=== PATIENT | male | born 1960 | race Caucasian/White ===

== ENCOUNTER 2016-11-26 12:32 | Emergency (ER) | payer OTHER ==
--- NOTE | 2016-11-26 12:49 | ED Physician Chart ---
Chief Complaint/HPI - Patient Information Date Seen:: 11/26/16 Time Seen:: 12:47 Chief Complaint:: INFECTED ULCERATION DORSAL RT FOOT Allergies:: Allergies Allergy/AdvReac Type Severity Reaction Status Date / Time No Known Allergies Allergy Verified 11/26/16 12:40 The patient first noticed the ulceration on his right foot 10 days ago. The ulcer is intermittently painful at a severity of 7/10. He obtained some relief from the pain by applying apple cider vinegar to the ulceration. He has not noticed any sex or spiders that may have bitten him. His had no fever, chills, nausea, or vomiting. He has no prior history of a similar ulcer. He has a 40 year pack history of smoking cigarettes. He is not diabetic. Vitals:: Vital Signs - 8 hr 11/26/16 12:42 Temp 97.8 F HR 77 RR 17 BP 118/62 O2 Sat % 95 Review:: Nurse's Note Reviewed Review of Systems - Review of Systems General/Constitutional: No fever, No chills, No diaphoresis Skin: Skin lesions (skin lesion is localized to the dorsum of the right foot. The ulceration is approximately 1 cm in diameter with surrounding erythema up to 3 cm.), Rash (sunburning rash on abdomen.), No bruising Head: No headache Eyes: No loss of vision, No diplopia ENT: No earache, No sore throat Neck: No neck pain, No stiffness, Mass noted Cardio Vascular: No chest pain Pulmonary: No SOB, No cough GI: No nausea, No vomiting, No diarrhea, No pain G/U: No dysuria, No frequency, No hematuria Musculoskeletal: No bone or joint pain, No back pain, No muscle pain Psychiatric: No prior psych history, No depression, Anxiety, No suicidal ideation Neurological: No syncope, No headache, No seizure, No dizziness Past Medical History - Past Medical History Past Medical History: Other (patient denies a past medical history of diabetes, COPD, or hypertension.) Social History: Smoker, Alcohol, No Drug Use, Employment:: Patient is a electric lift truck driver. Family Medical History - Family Member Father Hx Family Cancer: No Hx Family Congestive Heart Failure: No Hx Family Stroke: No Hx Family Seizures: No Hx Family AIDS: No Hx Family HIV: No Hx Family COPD: No Hx Family Tuberculosis: No Physical Exam - Physical Examination General/Constitutional: Awake, Well-developed, well-nourished, Alert, No distress, Non-toxic appearing, Ambulatory Head: Atraumatic Eyes: Lids, conjuctiva normal, PERRL, EOMI Other Skin comments:: Patient has a shallow ulceration on the dorsum of the right foot it is approximately 1 cm in diameter. Surrounded by erythemic warm tissue. Patient also has a sunburn rash on the abdomen which is in the healing stage. ENMT: External ears, nose nl, Lips, teeth, gums nl, Oropharynx nl Neck: Nontender, No JVD, No nuchal rigidity, No mass Cardio Vascular: RRR, No murmur, gallop, rubs, NL S1 S2 Other Cardio Vascular comments:: Good dorsalis pedis pulses both lower extremities. GI: No tenderness/rebounding/guarding, No organomegaly, No hernia, Nondistended , No mass/bruits : No CVA tenderness Extremities: No tenderness or effusion, Full ROM, normal strength in all extremities Neuro/Psych: Alert/oriented, Normal sensory exam, Judgement/insight normal, Mood normal, Normal gait, No focal deficits Misc: Normal back, No paraspinal tenderness Labs/Radiology/EKG Results - Lab Results Results: Patient had an Accu-Chek of 147 and he ate approximately 1 hour prior to this. Assessment - Assessment General Assessment: CASE SUMMARY: This 56-year-old male presents with a ten-day history of an ulceration over the dorsum of his right foot. It is moderately painful and it looks like it has a erythematous rim consistent with cellulitis. She denies any injury to the area, fever, nausea or vomiting. His Accu-Chek was 147 shortly after eating a meal. Patient was treated with 2 g of ceftriaxone for the cellulitis surrounding the ulcer. He is being discharged with a prescription for cephalexin 500 mg to be taken 4 times a day for 10 days. He was advised to return to the emergency department or see his primary care physician in 2-3 days for reevaluation of the ulceration. He was also advised to return to the emergency department if he develops any fever or chills. Discharged in stable condition. MDM DDX FOR ULCERATION OF ON THE FOOT: NOT Ischemic ulceration based on physical exam. NOT Diabetic ulceration base on postprandial check of 147. ED Septic Shock - . Is Septic Shock (SBP<90, OR Lactate>4 mmol\L) present?: No - <6hrs of presentation: Vital Signs: Vital Signs - 8 hr 11/26/16 12:42 Temp 97.8 F HR 77 RR 17 BP 118/62 O2 Sat % 95 Reassessment (Disposition) - Reassessment Reassessment Condition:: Unchanged - Diagnosis Diagnosis:: 1 CM ULCERATION DORSUM RIGHT FOOT WITH MILD CELLULITIS - Aftercare/Follow up Instructions Aftercare/Follow-Up Instructions:: Counseled pt regarding lab results/diagnosis & need follow up ED Discharge Plan - Patient Disposition Instructions: Cellulitis
[2016-11-26] MEDS ORDERED: cefTRIAXone 2 GM in Sodium Chloride 0.9% 100 ML IV ONE (13:00)
== END 2016-11-26 14:15 | disposition home or self-care (01) ==
LOC: ER 12:32
DX: L97.519 Non-pressure chronic ulcer of other part of right foot with unspecified severity (principal); L03.115 Cellulitis of right lower limb; F17.200 Nicotine dependence, unspecified, uncomplicated
CPT/HCPCS: 99284; 96365; 36416; 82948; J0696 ×2; Z7502